=== PATIENT | female | born 1960 | race Caucasian/White ===

== ENCOUNTER 2017-08-10 10:47 | Emergency (ER) | payer OTHER ==
[~2017-08-10] VITALS: Ht 170.2 cm; Wt 104.6 kg
[~2017-08-10 10:47] MED LIST: AMLO5TAB4 PO; CALC3.7S5 NAS; COLE625T12 PO; DIPH25CA62 PO; EZET10TA18 PO; HYDR-3237 PO; HYDR25TA11 PO; LEVO88TA2 PO; LIOT5TAB10 PO; LORA1TAB PO; OMEP20CA9 PO; OXYC1TAB9 PO; TAMS-11 PO; VITAMIN PO
[2017-08-10 10:50] VITALS: BP 135/80
[2017-08-10] MEDS ORDERED: LIDOCAINE/PRILOCAINE CRM W/TEG 5GM TP ONE (13:30)
[2017-08-10] MEDS ORDERED: LIDOCAINE 1%, 10ML ONE (13:52)
[2017-08-10] MEDS ORDERED: LIDOCAINE 1%, 20ML SQ ONE (14:00)
== END 2017-08-10 15:38 | disposition home or self-care (01) ==
LOC: ED 14:15
DX: K64.5 Perianal venous thrombosis (principal); R51 Headache
CPT/HCPCS: 46083; 99284